=== PATIENT | male | born 1945 | race Caucasian/White ===

== ENCOUNTER → 2016-05-20 | Outpatient (CLI) | payer MEDICARE, OTHER | LOC: MW.CHFP 10:20 | PROVIDERS: ATTEND Emergency Medicine | DX: E11.9 Type 2 diabetes mellitus without complications (principal) | CPT/HCPCS: 36415; 80048; 83036; G0463 ==

== ENCOUNTER → 2016-07-15 | Outpatient (CLI) | payer MEDICARE, OTHER | LOC: MW.CHPOD 08:00 | PROVIDERS: ATTEND Podiatrist Foot & Ankle Surgery | DX: E11.9 Type 2 diabetes mellitus without complications (principal); M79.671 Pain in right foot; M79.672 Pain in left foot; L90.9 Atrophic disorder of skin, unspecified; L85.1 Acquired keratosis [keratoderma] palmaris et plantaris | CPT/HCPCS: 11056; 99203 ==

== ENCOUNTER 2023-02-13 04:25 | Emergency (ER) | payer MEDICARE, OTHER ==
[2023-02-13 05:09] LABS: BASOPHILS ABSOLUTE AUTO 0.04 K/uL (0.00-0.20); BASOPHILS PERCENT AUTO 0.3 % (0.0-1.0); EOSINOPHILS ABSOLUTE AUTO 0.17 K/uL (0.00-0.45); EOSINOPHILS PERCENT AUTO 1.3 % (0.0-6.0); HEMATOCRIT 33.9 % (42.0-52.0); HEMOGLOBIN 11.8 g/dL (14.0-18.0); IMMATURE GRAN ABSOLUTE AUTO 0.07 K/uL (0.00-0.05); IMMATURE GRAN PERCENT AUTO 0.5 % (0.0-0.4); LYMPHOCYTES ABSOLUTE AUTO 2.03 K/uL (1.00-4.80); MEAN CORPUSCULAR HEMOGLOBIN 31.7 pg (28.0-32.0); MEAN CORPUSCULAR HGB CONC 34.8 g/dL (32.0-36.0); MEAN CORPUSCULAR VOLUME 91.1 fL (83.0-99.0); MEAN PLATELET VOLUME 8.7 fL (9.4-12.4); MONOCYTES ABSOLUTE AUTO 1.22 K/uL (0.00-0.80); NEUTROPHILS ABSOLUTE AUTO 9.99 K/uL (1.80-7.70); NEUTROPHILS PERCENT AUTO 73.9 % (41.0-71.0); PLATELET COUNT,PLT 270 K/uL (150-400); RED BLOOD CELL COUNT 3.72 M/uL (4.52-5.90); WHITE BLOOD CELL COUNT,WBC 13.52 K/uL (3.9-11.3)
[2023-02-13] MEDS ORDERED: Ondansetron 4 MG/2 ML SDV IVPUSH ONE (05:16)
[2023-02-13] MEDS ORDERED: Sodium Chloride 0.9% 1,000 ML IV ONE (05:16)
[2023-02-13] MEDS ORDERED: Morphine 4 MG/ML Syringe IVPUSH ONE (05:16)
[2023-02-13] MEDS ORDERED: Ketorolac 30 MG/ML SDV IVPUSH ONE (05:19)
[2023-02-13 05:34] LABS: A/G RATIO 0.7 (0.9-1.6); ALBUMIN 3.5 g/dL (3.4-5.0); BILIRUBIN TOTAL 0.5 mg/dL (0.2-1.0); CALCIUM 9.3 mg/dL (8.5-10.1); CREATININE 1.2 mg/dL (0.8-1.3); EST CRCL DRUG DOSING (CG) 58.03 mL/min; POTASSIUM,K 4.4 mmol/L (3.5-5.1); PROTEIN TOTAL,TP 8.2 g/dL (6.4-8.2)
[2023-02-13] MEDS ORDERED: LORazepam 2 MG/ML SDV IVPUSH ONE (05:46)
[2023-02-13] MEDS ORDERED: Iopamidol 755 Mg/ML 100 ML Bottle IVPUSH ONE (06:02)
[2023-02-13 07:02] VITALS: PULSE 90
[2023-02-13 07:52] VITALS: BP 118/57
== END 2023-02-13 07:51 | disposition home or self-care (01) ==
LOC: MW.ED 04:25
DX: R07.89 Other chest pain (principal); E78.00 Pure hypercholesterolemia, unspecified; I10 Essential (primary) hypertension; E11.9 Type 2 diabetes mellitus without complications; Z88.2 Allergy status to sulfonamides; Z79.899 Other long term (current) drug therapy; Z79.84 Long term (current) use of oral hypoglycemic drugs
CPT/HCPCS: 36415; 71045; 71275; 80053; 84484; 85025; 93005; 96374; 96375; 99285; J1885; J2270; J2405; J7030; Q9967; 93010; 99284

== ENCOUNTER 2023-08-12 06:43 | Day surgery (SDC) | payer MEDICARE ==
[2023-08-12] MEDS: Lactated Ringers 1,000 ML IV SCH (06:45)
[2023-08-12] MEDS ORDERED: Propofol 200 MG/20 ML SDV ONE (07:26)
[2023-08-12] MEDS ORDERED: Water For Injection, Sterile 20 ML ONE (07:26)
[2023-08-12] MEDS ORDERED: dexmedeTOMIDine HCl 200 MCG/2 ML SDV ONE (07:26)
[2023-08-12 08:55] VITALS: PULSE 76
[2023-08-12 09:26] VITALS: BP 124/70
== END 2023-08-12 09:19 | disposition home or self-care (01) ==
LOC: MW.SDS 06:43
PROVIDERS: ATTEND Surgery
DX: K20.90 Esophagitis, unspecified without bleeding (principal); K22.70 Barrett's esophagus without dysplasia; K31.9 Disease of stomach and duodenum, unspecified; I10 Essential (primary) hypertension; E11.42 Type 2 diabetes mellitus with diabetic polyneuropathy; D50.9 Iron deficiency anemia, unspecified; E78.00 Pure hypercholesterolemia, unspecified; Z87.891 Personal history of nicotine dependence; Z79.84 Long term (current) use of oral hypoglycemic drugs; Z79.85 Long-term (current) use of injectable non-insulin antidiabetic drugs; Z79.899 Other long term (current) drug therapy
CPT/HCPCS: 43239; 82947; J2704; J7120; 00731; 88305; 99100; J3490

== ENCOUNTER 2025-03-08 07:00 | Day surgery (SDC) | payer MEDICARE ==
[~2025-03-08 07:00] MED LIST: Lactated Ringers 1,000 ML IV SCH
[2025-03-08] MEDS ORDERED: propofoL 500 MG/50 ML 50 ML ONE (07:20)
[2025-03-08 10:08] VITALS: BP 148/62; PULSE 75
== END 2025-03-08 09:20 | disposition home or self-care (01) ==
LOC: MW.SDS 07:00
PROVIDERS: ATTEND Surgery
DX: K22.70 Barrett's esophagus without dysplasia (principal); K31.7 Polyp of stomach and duodenum; K29.70 Gastritis, unspecified, without bleeding; E11.9 Type 2 diabetes mellitus without complications; I10 Essential (primary) hypertension; Z88.2 Allergy status to sulfonamides; Z79.899 Other long term (current) drug therapy
CPT/HCPCS: 43239; J2003; J2704; 00731; 88305; 99100